=== PATIENT | female | born 1955 | race Caucasian/White ===

== ENCOUNTER → 2016-11-13 | Outpatient (CLI) | payer BC ==
[~2016-11-13] MED LIST: LISI-725 PO; PRLSR20 PO
--- NOTE | 2016-11-13 09:37 | DIAGNOSTIC IMAGING REPORT ---
LEFT LOWER EXTREMITY VENOUS DOPPLER CLINICAL HISTORY: Left leg pain and swelling. COMPARISON STUDY: No previous studies for comparison. TECHNIQUE: Sonography of the deep venous system of the left lower extremity was performed. Compression and augmentation were evaluated. FINDINGS: The left common femoral, superficial femoral and popliteal veins were compressible. Augmentation was normal. Flow was shown within the deep calf vessels. Note is made of thrombus within varicosities of the proximal to mid medial left calf. This represents superficial thrombophlebitis. IMPRESSION: 1. Findings consistent with superficial thrombophlebitis of the left calf. 2. No evidence of deep venous thrombus within the left lower extremity. Electronically signed by: Esvin Contreras M.D. 11/13/2016 9:35 AM Dictated Date/Time: 11/13/2016 9:33 AM
[2016-11-21 18:33] LABS: ANTITHROMBINIII ACTIVITY** 129 % activity (80-120); APTT 26 sec (22-34); B2 GLYCOPROTEIN IGA <9 SAU (<=20); B2 GLYCOPROTEIN IGG <9 SGU (<=20); B2 GLYCOPROTEIN IGM <9 SMU (<=20); DRVVT MIX INTERPRETAION Not Indicated; F8 ACT 145 % (50-180); LAC PTT SCREEN 33 sec (<=40); PHOSPHATIDYLSERINE IGA <20 U/mL (<20); PHOSPHATIDYLSERINE IGG 26 U/mL (<10); PHOSPHATIDYLSERINE IGM <25 U/mL (<25); PROTEIN C ACTIVITY** TC 1777X 170 % (70-180); PROTEIN S FREE 104 % normal (50-147); PROTEIN S TOTAL 100 % (70-140); RISTOCETIN COFACTOR** 4459X 153 % (42-200)
== END | disposition home or self-care (01) ==
LOC: C.ULTR 09:03
PROVIDERS: ATTEND Internal Medicine Hematology & Oncology
DX: I80.02 Phlebitis and thrombophlebitis of superficial vessels of left lower extremity (principal)

== ENCOUNTER → 2017-02-03 | Outpatient (CLI) | payer BC ==
[2017-02-06 00:31] LABS: B2 GLYCOPROTEIN IGA <9 SAU (<=20); B2 GLYCOPROTEIN IGG <9 SGU (<=20); B2 GLYCOPROTEIN IGM <9 SMU (<=20); DRVVT MIX INTERPRETAION Not Indicated; LAC PTT SCREEN 42 sec (<=40); PHOSPHATIDYLSERINE IGA <20 U/mL (<20); PHOSPHATIDYLSERINE IGG 28 U/mL (<10); PHOSPHATIDYLSERINE IGM <25 U/mL (<25)
[2017-02-07 15:01] LABS: LUPUS ANTICOAGULANT** TC36573X Weak Positive (Negative); THROMBIN TIME(REFLEX!DO NOTORD 15 sec (13-19)
== END | disposition home or self-care (01) ==
LOC: C.LAB 07:06
PROVIDERS: ATTEND Internal Medicine Hematology & Oncology
DX: I80.02 Phlebitis and thrombophlebitis of superficial vessels of left lower extremity (principal)